=== PATIENT | female | born 1955 | race Caucasian/White ===

== ENCOUNTER → 2023-07-06 | Outpatient (CLI) | payer MEDICARE ==
[2023-07-06 19:47] LABS: ALT 8 U/L (8-44); AST 22 U/L (13-35); Albumin 4.4 g/dL (3.8-4.9); Albumin/Globulin Ratio 1.42 Ratio (1.60-3.17); Alkaline Phosphatase 89 U/L (41-126); BUN/Creat Ratio 17.54 Ratio (12.00-20.00); Blood Urea Nitrogen 22.8 mg/dL (9.0-27.0); Calcium 9.7 mg/dL (8.7-10.3); Carbon Dioxide 26.8 mmol/L (21.6-31.8); Chloride 101 mmol/L (96-109); Globulin 3.1 g/dL (1.6-3.3); Glucose 78 mg/dL (70-110); Potassium 4.1 mmol/L (3.5-5.5); Sodium 139 mmol/L (135-145); T4, Free (Free Thyroxine) 0.34 ng/dL (0.80-1.80); Total Bilirubin 0.2 mg/dL (0.3-1.2); Total Protein 7.5 g/dL (6.2-8.2)
== END | disposition home or self-care (01) ==
LOC: LABWHC1 14:58
PROVIDERS: ATTEND Internal Medicine
DX: E89.0 Postprocedural hypothyroidism (principal)
CPT/HCPCS: 36415; 80053; 84439; 84443

== ENCOUNTER → 2023-07-06 | Outpatient (CLI) | payer MEDICARE ==
--- NOTE | 2023-07-06 15:10 | XR ---
EXAMINATION TYPE: XR chest 2V DATE OF EXAM: 07/06/2023 COMPARISON: NONE TECHNIQUE: PA and lateral views submitted. HISTORY: Cough FINDINGS: The lungs are clear and there is no pneumothorax, pleural effusion, or focal pneumonia. Heart size normal and no overt failure. Osseous structures intact. IMPRESSION: 1. No acute process.
== END | disposition home or self-care (01) ==
LOC: RADXRMAIN 14:42
PROVIDERS: ATTEND Family Medicine
DX: R05.9 Cough, unspecified (principal)
CPT/HCPCS: 71046

== ENCOUNTER 2024-02-23 13:44 | Emergency (ER) | payer MEDICARE ==
--- NOTE | 2024-02-23 15:08 | ED ---
Fall HPI - General Source: patient, RN notes reviewed Mode of arrival: EMS Limitations: no limitations <Arianne Leon - Last Filed: 02/23/24 15:06> - General Source: patient, RN notes reviewed Mode of arrival: EMS Limitations: no limitations - History of Present Illness MD Complaint: fall Onset/Timin -: days(s) Fall From: standing When Fall Occurred: # days SPOTTER Fall Witnessed: no Place Fall Occurred: home Loss of Consciousness: yes Prolonged Down Time?: no Symptoms Prior to Fall: lightheadedness Location - Extremities: Left: Knee, Right: Arm Severity scale (1-10): 10 (Left knee) <Haja Sanchez - Last Filed: 03/03/24 21:50> - General Chief Complaint: Fall Stated Complaint: Fall Time Seen by Provider: 02/23/24 15:07 - History of Present Illness Initial Comments: Quick note: 68-year-old female presented to the ER for evaluation of a fall. Patient states Tuesday night she stood up felt dizzy and blacked out. She states she fell landing on her left knee. She denies head injury or blood thinner use. She admits to loss of consciousness. She does report a pinch in the roof in her neck radiation down her right arm. No chest pain or shortness of breath. (Arianne Leon) This is a 68-year-old female with history of SLE and thyroid issues presenting via EMS for pain following a fall on Tuesday at 2200. Patient endorses loss of consciousness after standing, landing on her left knee suffering neck pain with right upper extremity radiculopathy. Also endorses right foot/toe pain endorses going to a chiropractor day following the fall when her "neck was stretched" with subsequent mid neck pain and neck test 2 days. Endorses neck x-ray at the time showed no acute fractures. Denies chest pain, dyspnea, abdominal pain, N/V/D. (Haja Sanchez) - Related Data Previous Rx's Medication Instructions Recorded Ibuprofen [Motrin] 600 mg PO Q8HR PRN #30 tab 02/23/24 Allergies Allergy/AdvReac Type Severity Reaction Status Date / Time No Known Allergies Allergy Verified 02/23/24 14:10 Review of Systems ROS Other: All systems not noted in ROS Statement are negative. <Arianne Leon - Last Filed: 02/23/24 15:06> ROS Other: All systems not noted in ROS Statement are negative. <Haja Sanchez - Last Filed: 03/03/24 21:50> ROS Statement: Those systems with pertinent positive or pertinent negative responses have been documented in the HPI. Past Medical History Past Medical History: Thyroid Disorder Additional Past Medical History / Comment(s): lupus, pancreatitis Past Surgical History: Cholecystectomy Additional Past Surgical History / Comment(s): breast reduction, thyroidectomy <Arianne Leon - Last Filed: 02/23/24 15:06> General Exam Limitations: no limitations <Arianne Leon - Last Filed: 02/23/24 15:06> Limitations: no limitations General appearance: alert, in no apparent distress Head exam: Present: atraumatic, normocephalic, normal inspection Eye exam: Present: normal appearance, PERRL, EOMI. Absent: scleral icterus, conjunctival injection, periorbital swelling ENT exam: Present: normal exam, mucous membranes moist Neck exam: Present: normal inspection. Absent: tenderness, meningismus, lymphadenopathy Respiratory exam: Present: normal lung sounds bilaterally. Absent: respiratory distress, wheezes, rales, rhonchi, stridor Cardiovascular Exam: Present: regular rate, normal rhythm, normal heart sounds. Absent: systolic murmur, diastolic murmur, rubs, gallop, clicks GI/Abdominal exam: Present: soft, normal bowel sounds. Absent: distended, tenderness, guarding, rebound, rigid Extremities exam: Present: full ROM, tenderness (Positive left superior and medial knee tenderness without obvious open wound, crepitus, deformity. Positive right fifth metatarsal TTP without obvious crepitus or deformity), normal capillary refill, other (Negative left knee Nava's, varus/valgus. Positive Kristopher's test.). Absent: pedal edema, joint swelling, calf tenderness Back exam: Present: normal inspection, paraspinal tenderness (Positive right cervical spine tenderness), vertebral tenderness (Cognitive mid cervical spine tenderness without crepitus or step-off) Neurological exam: Present: alert, oriented X3, CN II-XII intact Psychiatric exam: Present: normal affect, normal mood Skin exam: Present: warm, dry, intact, normal color. Absent: rash <Haja Sanchez - Last Filed: 03/03/24 21:50> - General Exam Comments Initial Comments: Visual Physical Exam Vital signs reviewed General: Well-appearing, nontoxic, no acute distress. Head: Normocephalic, atraumatic Eyes: PERRLA, EOMI ENT: Airway patent Chest: Nonlabored breathing Skin: No visual rash, normal skin tone Neuro: Alert and oriented 3 Musculoskeletal: No gross abnormalities (Arianne Leon) Course Vital Signs 02/23/24 02/23/24 02/23/24 14:05 18:01 22:21 Temperature 99.5 F 98.8 F Pulse Rate 108 H 90 88 Respiratory 20 18 18 Rate Blood Pressure 98/65 116/70 97/58 O2 Sat by Pulse 98 96 95 Oximetry Medical Decision Making <Arianne Leon - Last Filed: 02/23/24 15:06> - Lab Data Result diagrams: 02/23/24 15:48 02/23/24 15:48 <Haja Sanchez - Last Filed: 03/03/24 21:50> - Medical Decision Making I performed the quick note portion of this chart. Electronically signed by Arianne Leon PA-C (Arianne Leon) Was pt. sent in by a medical professional or institution ([facility], [facility], urgent care, hospital, or jail...) When possible be specific @ -No Did you speak to anyone other than the patient for history (EMS, parent, family, police, friend...)? What history was obtained from this source @ -No Did you review nursing and triage notes (agree or disagree)? Why? @ -I reviewed and agree with nursing and triage notes Were old charts reviewed (outside hosp., previous admission, EMS record, old EKG, old radiological studies, urgent care reports/EKG's, jail records)? Report findings @ -No old charts were reviewed Differential Diagnosis (chest pain, altered mental status, abdominal pain women, abdominal pain men, vaginal bleeding, weakness, fever, dyspnea, syncope, headache, dizziness, GI bleed, back pain, seizure, CVA, palpatations, mental health, musculoskeletal)? @ -Differential Syncope: Valvular disease, hypertrophic cardiomyopathy, pulmonary embolism, tamponade, tachycardia, bradycardia, MN, hypovolemia, hemorrhage, dissection, anemia, intracranial hemorrhage, seizure, hypoglycemia, carbon monoxide poisoning, this is not meant to be an all-inclusive list. EKG interpreted by me (3pts min.). @ -Sinus rhythm without ST changes or T wave inversion. Ventricular rate 93 bpm, EVON 132 ms, QRS duration 94 ms, QTc 434 ms. X-rays interpreted by me (1pt min.). @ -Cervical spine x-ray shows mild DDD with no fracture or dislocation. Left knee x-ray shows no acute fracture, joint effusion or soft tissue swelling. Right foot x-ray shows nondisplaced fracture at the base of the proximal fifth digit phalanx. CT interpreted by me (1pt min.). @ -Head/neck CT shows no intracranial process or cervical spine fracture. CT head neck angiography performed to rule out vertebral dissection following chiropractic manipulation. No evidence of carotid or vertebral artery dissection, aneurysm, stenosis. U/S interpreted by me (1pt. min.). @ -None done What testing was considered but not performed or refused? (CT, X-rays, U/S, labs)? Why? @ -None What meds were considered but not given or refused? Why? @ -None Did you discuss the management of the patient with other professionals (professionals i.e. , PA, [facility], lab, RT, psych nurse, medical social worker, derrick follower, teacher, ecological technical officer, social work case manager)? Give summary @ -No Was smoking cessation discussed for >3mins.? @ -No Was critical care preformed (if so, how long)? @ -No Were there social determinants of health that impacted care today? How? (Homelessness, low income, unemployed, alcoholism, drug addiction, transporta tion, low edu. Level, literacy, decrease access to med. care, residential, rehab)? @ -No Was there de-escalation of care discussed even if they declined (Discuss DNR or withdrawal of care, Hospice)? DNR status @ -No What co-morbidities impacted this encounter? (DM, HTN, Smoking, COPD, CAD, Cancer, CVA, ARF, Chemo, Hep., AIDS, mental health diagnosis, sleep apnea, morbid obesity)? @ -None Was patient admitted / discharged? Hospital course, mention meds given and route, prescriptions, significant lab abnormalities, going to OR and other pertinent info. @ -Lab work shows mild hypokalemia (3.4), kidney dysfunction and slightly elevated alk phos. Negative troponin. Cervical spine x-ray shows mild DDD with no fracture or dislocation. Left knee x-ray shows no acute fracture, joint effusion or soft tissue swelling. Right foot x-ray shows nondisplaced fracture at the base of the proximal fifth digit phalanx. Head/neck CT shows no intracranial process or cervical spine fracture. CT head neck angiography performed to rule out vertebral dissection following chiropractic manipulation. No evidence of carotid or vertebral artery dissection, aneurysm, stenosis. Patient initially given Toradol and Norflex for pain. Benadryl and p.o. potassium chloride. Provided. Normal saline with Solu-Medrol and morphine provided by Dr. Davies and patient discharged with T3 starter pack. Motrin 600 sent to patient's pharmacy. And Medi boot ordered for patient's right foot. Undiagnosed new problem with uncertain prognosis? @ -No Drug Therapy requiring intensive monitoring for toxicity (Heparin, Nitro, Insulin, Cardizem)? @ -No Were any procedures done? @ -No Diagnosis/symptom? @ -Right toe fracture, cervical spine strain, knee contusion, orthostasis Acute, or Chronic, or Acute on Chronic? @ -Acute Uncomplicated (without systemic symptoms) or Complicated (systemic symptoms)? @ -Complicated Side effects of treatment? @ -No Exacerbation, Progression, or Severe Exacerbation? @ -No Poses a threat to life or bodily function? How? (Chest pain, USA, MN, pneumonia, PE, COPD, DKA, ARF, appy, cholecystitis, CVA, Diverticulitis, Homicidal, Suicidal, threat to staff... and all critical care pts) @ -No (Haja Sanchez) - Lab Data Lab Results 02/23/24 02/23/24 02/23/24 Range/Units 15:48 15:48 15:48 WBC 12.2 H (3.8-10.6) k/uL RBC 4.13 (3.80-5.40) m/uL Hgb 11.1 L (11.4-16.0) gm/dL Hct 33.3 L (34.0-46.0) % MCV 80.6 (80.0-100.0) fL MCH 26.9 (25.0-35.0) pg MCHC 33.4 (31.0-37.0) g/dL RDW 16.1 H (11.5-15.5) % Plt Count 271 (150-450) k/uL MPV 8.2 Neutrophils % 81 % Lymphocytes % 11 % Monocytes % 6 % Eosinophils % 1 % Basophils % 0 % Neutrophils # 9.8 H (1.3-7.7) k/uL Lymphocytes # 1.4 (1.0-4.8) k/uL Monocytes # 0.7 (0-1.0) k/uL Eosinophils # 0.1 (0-0.7) k/uL Basophils # 0.0 (0-0.2) k/uL Anisocytosis Slight PT 9.8 L (10.0-12.5) sec INR 0.9 (<1.2) APTT 23.6 (22.0-30.0) sec Sodium 137 (137-145) mmol/L Potassium 3.4 L (3.5-5.1) mmol/L Chloride 101 (98-107) mmol/L Carbon Dioxide 24 (22-30) mmol/L Anion Gap 12 mmol/L BUN 25 H (7-17) mg/dL Creatinine 1.18 H (0.52-1.04) mg/dL Est GFR (CKD-EPI)AfAm 55 (>60 ml/min/1.73 sqM) Est GFR (CKD-EPI)NonAf 48 (>60 ml/min/1.73 sqM) Glucose 142 H (74-99) mg/dL Calcium 9.7 (8.4-10.2) mg/dL Magnesium 2.1 (1.6-2.3) mg/dL Total Bilirubin 0.7 (0.2-1.3) mg/dL AST 29 (14-36) U/L ALT 19 (4-34) U/L Alkaline Phosphatase 129 H (38-126) U/L Troponin I (0.000-0.034) ng/mL Total Protein 7.8 (6.3-8.2) g/dL Albumin 4.5 (3.5-5.0) g/dL 02/23/24 Range/Units 15:48 WBC (3.8-10.6) k/uL RBC (3.80-5.40) m/uL Hgb (11.4-16.0) gm/dL Hct (34.0-46.0) % MCV (80.0-100.0) fL MCH (25.0-35.0) pg MCHC (31.0-37.0) g/dL RDW (11.5-15.5) % Plt Count (150-450) k/uL MPV Neutrophils % % Lymphocytes % % Monocytes % % Eosinophils % % Basophils % % Neutrophils # (1.3-7.7) k/uL Lymphocytes # (1.0-4.8) k/uL Monocytes # (0-1.0) k/uL Eosinophils # (0-0.7) k/uL Basophils # (0-0.2) k/uL Anisocytosis PT (10.0-12.5) sec INR (<1.2) APTT (22.0-30.0) sec Sodium (137-145) mmol/L Potassium (3.5-5.1) mmol/L Chloride (98-107) mmol/L Carbon Dioxide (22-30) mmol/L Anion Gap mmol/L BUN (7-17) mg/dL Creatinine (0.52-1.04) mg/dL Est GFR (CKD-EPI)AfAm (>60 ml/min/1.73 sqM) Est GFR (CKD-EPI)NonAf (>60 ml/min/1.73 sqM) Glucose (74-99) mg/dL Calcium (8.4-10.2) mg/dL Magnesium (1.6-2.3) mg/dL Total Bilirubin (0.2-1.3) mg/dL AST (14-36) U/L ALT (4-34) U/L Alkaline Phosphatase (38-126) U/L Troponin I 0.028 (0.000-0.034) ng/mL Total Protein (6.3-8.2) g/dL Albumin (3.5-5.0) g/dL Disposition <Arianne Leon - Last Filed: 02/23/24 15:06> Is patient prescribed a controlled substance at d/c from ED?: No Time of Disposition: 22:01 <Haja Sanchez - Last Filed: 03/03/24 21:50> Clinical Impression: Contusion of knee, left, Toe fracture, right, Orthostasis, Sprain of ligament of cervical spine region Disposition: HOME SELF-CARE Condition: Good Instructions (If sedation given, give patient instructions): Foot Fracture in Adults (ED) Prescriptions: Ibuprofen [Motrin] 600 mg PO Q8HR PRN #30 tab PRN Reason: Pain Referrals: Hal Nicolas MD [Primary Care Provider] - 1-2 days
--- NOTE | 2024-02-23 15:15 | XR ---
EXAMINATION TYPE: XR knee complete LT DATE OF EXAM: 02/23/2024 3:07 PM COMPARISON: None CLINICAL INDICATION: Female, 68 years old with history of fall, pain TECHNIQUE: XR knee complete LT 3 views submitted. FINDINGS: No evidence of any acute osseous pathology, soft tissue swelling, or joint effusion is no albert. Tricompartmental osteophyte formation involving the femoral condyles, tibial plateau and patella . Mild joint space narrowing. IMPRESSION: 1. No acute osseous pathology. 2. Mild tricompartmental osteoarthritic changes. [facility], Workstation: [facility], 02/23/2024 3:13 PM
--- NOTE | 2024-02-23 15:15 | XR ---
EXAMINATION TYPE: XR cervical spine comp DATE OF EXAM: 02/23/2024 3:07 PM COMPARISON: CLINICAL INDICATION: Female, 68 years old with history of fall; pain TECHNIQUE: The cervical spine was imaged in frontal, lateral, odontoid and bilateral oblique. FINDINGS: The osseous structures show normal alignment without evidence of an acute fracture. There are osteoph ytes noted throughout the cervical spine on the anterior and lateral aspects of the vertebral bodies. The intervertebral disk spaces are narrowed at multiple levels. Pedicles are intact. Soft tissues a re within normal limits. The odontoid appears intact. IMPRESSION: 1. No fracture or dislocation. 2. Mild degenerative disc disease changes of the cervical spine. [facility], Workstation: [facility], 02/23/2024 3:12 PM
[2024-02-23 16:22] LABS: Anisocytosis Slight; Basophils % (A) 0 %; Eosinophils # (A) 0.1 k/uL (0-0.7); Eosinophils % (A) 1 %; HCT 33.3 % (34.0-46.0); HGB 11.1 gm/dL (11.4-16.0); Lymphocytes # (A) 1.4 k/uL (1.0-4.8); Lymphocytes % (A) 11 %; MCH 26.9 pg (25.0-35.0); MCHC 33.4 g/dL (31.0-37.0); MCV 80.6 fL (80.0-100.0); Mean Platelet Volume 8.2; Monocytes # (A) 0.7 k/uL (0-1.0); Monocytes % (A) 6 %; Neutrophils # (A) 9.8 k/uL (1.3-7.7); Neutrophils % (A) 81 %; Platelet Count 271 k/uL (150-450); RBC 4.13 m/uL (3.80-5.40); RDW 16.1 % (11.5-15.5); WBC 12.2 k/uL (3.8-10.6)
[2024-02-23 16:35] LABS: ALT 19 U/L (4-34); AST 29 U/L (14-36); African American GFR (CKD) 55 (>60 ml/min/1.73 sqM); Albumin 4.5 g/dL (3.5-5.0); Alkaline Phosphatase 129 U/L (38-126); Anion Gap 12 mmol/L; Blood Urea Nitrogen 25 mg/dL (7-17); Calcium 9.7 mg/dL (8.4-10.2); Carbon Dioxide 24 mmol/L (22-30); Chloride 101 mmol/L (98-107); Glucose 142 mg/dL (74-99); Magnesium 2.1 mg/dL (1.6-2.3); Non-African American GFR(CKD) 48 (>60 ml/min/1.73 sqM); Potassium 3.4 mmol/L (3.5-5.1); Sodium 137 mmol/L (137-145); Total Bilirubin 0.7 mg/dL (0.2-1.3); Total Protein 7.8 g/dL (6.3-8.2)
--- NOTE | 2024-02-23 16:51 | XR ---
EXAMINATION TYPE: XR foot complete RT DATE OF EXAM: 02/23/2024 4:47 PM COMPARISON: None. CLINICAL INDICATION: Female, 68 years old with history of Lateral foot pain/tenderness, pain TECHNIQUE: XR foot complete RT XX views were obtained. FINDINGS: Virtually nondisplaced fracture involving the base of the proximal phalanx right fifth digit with adj acent soft tissue swelling. No definite intra-articular extension appreciated. IMPRESSION: As above [facility], , 02/23/2024 4:48 PM
[2024-02-23] MEDS: KETOROLAC 15 MG/ML 1 ML VIAL IVP STA (17:07)
[2024-02-23] MEDS: ORPHENADRINE 30 MG/ML 2 ML VIAL IVP STA (17:09)
[2024-02-23 17:13] LABS: INR 0.9 (<1.2); Partial Thromboplastin Time 23.6 sec (22.0-30.0); Prothrombin Time 9.8 sec (10.0-12.5)
[2024-02-23] MEDS: diphenhydrAMINE 50 MG/ML 1 ML VIAL IVP STA (17:59)
[2024-02-23 18:01] VITALS: RESP 18
--- NOTE | 2024-02-23 19:10 | CT ---
EXAMINATION TYPE: CT brain cspine wo con CT DLP: 1248 mGycm, Automated exposure control for dose reduction was used. DATE OF EXAM: 02/23/2024 6:22 PM COMPARISON: None. CLINICAL INDICATION:Female, 68 years old with history of Fall, pain; Fall on Tuesday. TECHNIQUE: Brain: Multiple axial CT images of the brain were obtained without IV contrast. Cspine: Axial CT images from the skull base to the inferior aspect of T2 we obtained without intraven ous contrast. Coronal and sagittal reformatted images were also reviewed. . FINDINGS: Brain: Extra-axial spaces: No abnormal extra-axial fluid collections. Ventricular system: Within normal limits Cerebral parenchyma: No acute intraparenchymal hemorrhage or mass effect. The bee-white junction is well differentiated. Bilateral basal ganglia mineralization. Cerebellum: Unremarkable. Mass effect: No evidence of midline shift. Intracranial vasculature: unremarkable Soft tissues: Normal. Calvarium/osseous structures: No depressed skull fracture. Paranasal sinuses and mastoid air cells: Clear. Visualized orbits: Orbital contents are intact. Cervical spine: Fracture: No acute osseous abnormality. Osseous structures: Mild degenerative disease of the visualized spine. Vertebral alignment: Within normal limits. Spinal canal/Neural Foramina: No evidence of significant spinal canal narrowing. No evidence for sign ificant neural foraminal stenosis. Neck soft tissues: Prevertebral soft tissues are within normal limits. Other: The airway is patent. The lung apices are clear. IMPRESSION: 1. No acute intracranial process. 2. No evidence of acute cervical spine fracture. [facility], , 02/23/2024 7:08 PM
[2024-02-23] MEDS: POTASSIUM CHLORIDE ER 20 MEQ TAB.ER PO STA (19:28)
[2024-02-23] MEDS: methylPREDNISolone SOD SUCCIN 125 MG in SODIUM CHLORIDE 0.9% 100 ML IVPB STA (19:45)
[2024-02-23] MEDS: SODIUM CHLORIDE 0.9% 1,000 ML IV ONE (19:52)
[2024-02-23] MEDS: methylPREDNISolone SOD SUCCI 125 MG/2 ML VIAL IV STA (19:53)
[2024-02-23] MEDS: MORPHINE SULFATE 4 MG/ML SYRINGE IVP STA (19:55)
--- NOTE | 2024-02-23 21:48 | CT ---
EXAMINATION TYPE: CT angio head neck CT DLP: 449 mGycm, Automated exposure control for dose reduction was used. DATE OF EXAM: 02/23/2024 9:33 PM COMPARISON: CT head from the same day. CLINICAL INDICATION:Female, 68 years old with history of syncope after chiropractor; PHH, Syncope. TECHNIQUE: Axially acquired helical CT angiogram of the head and neck was obtained with contrast. Axi al images are supplemented with 3D reconstructions and MIP images which were post-processed at an in dependent workstation. NASCET criteria used. Contrast used:65ml mL of Isovue 370 with IV Contrast, Oral contrast used: None. FINDINGS: CTA HEAD: Please see CT head noncontrasted study from the same day for further intracranial details. The visualized portions of the internal carotid arteries, middle cerebral arteries, anterior cerebral arteries, and posterior cerebral arteries are patent. The basilar and vertebral arteries are patent. CTA NECK: Right Carotid System: The common carotid artery and external carotid artery are patent. The carotid bifurcation demonstrate s no evidence of hemodynamically significant stenosis. The remaining portions of the internal carotid artery demonstrate normal size without significant narrowing. Left Carotid System: The common carotid artery and external carotid artery are patent. The carotid bifurcation demonstrate s no evidence of hemodynamically significant stenosis. The remaining portions of the internal carotid artery demonstrate normal size without significant narrowing. Vertebral arteries are patent without evidence hemodynamically significant stenosis. There is a three-vessel aortic arch. The origins of the great vessels are patent. No evidence of hemo dynamically significant stenosis. Upper thorax: IMPRESSION: 1. No evidence of dissection of the cervical internal carotid arteries or vertebral arteries or any e vidence of significant stenosis at the carotid bifurcations. 2. No evidence of intracranial high-grade stenosis or intracranial aneurysm. [facility], , 02/23/2024 9:46 PM
[2024-02-23] MEDS: ACET/COD 300 MG/30 MG STARTER PACK 6 TAB BTL PO STA (22:18)
[2024-02-23 22:24] VITALS: BP 97/58; PULSE 88; TEMP 98.8
== END 2024-02-23 22:27 | disposition home or self-care (01) ==
LOC: EC 13:44
DX: S92.911A Unspecified fracture of right toe(s), initial encounter for closed fracture (principal); S13.4XXA Sprain of ligaments of cervical spine, initial encounter; S80.02XA Contusion of left knee, initial encounter; I95.1 Orthostatic hypotension; W18.30XA Fall on same level, unspecified, initial encounter
CPT/HCPCS: 36415; 93005; 80053; 83735; 84484; 85025; 85610; 85730; 72050; 73562; 73630; 72125; 70496; 70450; 70498; 99284; 96374; 96375; 96361; J2270; J1200; J2360; J1885; Q9967; J2919

== ENCOUNTER 2024-05-18 09:10 | Day surgery (SDC) | payer MEDICARE ==
[2024-05-17 12:46] VITALS: BMI 25.9
[2024-05-18] MEDS: LACTATED RINGERS 1,000 ML IV SCH (09:35)
[2024-05-18] MEDS: IV FLUID CONTINUATION 1,000 ML IV ONE (09:35)
[2024-05-18] MEDS: LIDOCAINE 1% (10MG/ML) FOR IV START INTRADERMA STA (09:35)
[2024-05-18 09:41] VITALS: TEMP 97
[2024-05-18] MEDS ORDERED: PROPOFOL 10 MG/ML 20 ML VIAL IV ONE (09:46)
[2024-05-18] MEDS ORDERED: LIDOCAINE 1% INJ 10MG/ML (20 ML MDV) ONE (09:46)
--- NOTE | 2024-05-18 10:14 | P.PCN ---
Date of Procedure: 05/18/24 Procedure(s) Performed: Brief history: Patient is a pleasant 69-year-old white female scheduled for an elective upper endoscopy as well as colonoscopy as a part of evaluation of chronic epigastric pain for the last 3 months duration and chronic diarrhea with 12 loose watery bowel movements daily for the last few months. Procedure performed: Esophagogastroduodenoscopy with biopsy Colonoscopy with random biopsies Preoperative diagnosis: Chronic epigastric pain Chronic diarrhea Anesthesia: MAC Procedure: After informed consent was obtained from the patient was brought into the endoscopy unit and IV sedation was administered by anesthesia under continuous monitoring. Initially upper endoscopy was done. The Olympus GF 160 video endoscope was inserted inserted into the mouth and esophagus intubated without any difficulty and was gradually advanced into the stomach and duodenum and carefully examined. The bulb and second part of the duodenum appeared normal. Biopsies were done from the duodenum duodenum rule out celiac disease the scope was then withdrawn into the stomach adequately insufflated with air and upon careful examination the antrum 1 cm clean-based ulcer which was biopsied. There was evidence of antral gastritis noted. Mucosa of the body, cardia and fundus appeared normal. The scope was then withdrawn into the esophagus. The GE junction was located at 40 cm to the incisors. It appeared regular with no erythema erosions or ulcerations. Rest of the esophagus appeared normal. Patient tolerated the procedure well. At this time the patient continued to remain sedation. Initial digital rectal examination was normal. Olympus CF 160 video colonoscope was then inserted into the rectum and gradually advanced to the cecum without any difficulty. Careful examination was performed as the scope was gradually being withdrawn. The prep was excellent. The cecum had a 3 mm polyp that was removed by cold biopsy. Rest of the, ascending colon, transverse colon, descending colon, sigmoid colon and rectum appeared normal. These were done from the ascending and descending colon rule out microscopic/collagenous colitis. Scattered sigmoid diverticulosis retroflexion was performed in the rectum and no lesions were noted. Patient tolerated the procedure well. Impression: 1. Upper endoscopy revealed 1 cm clean-based antral ulcer and antral erosive gastritis status post biopsies 2. Colonoscopy revealed 3 mm cecal polyp status post cold biopsy and the rest of the colon appeared normal except for scattered sigmoid diverticulosis Recommendations: Findings of this examination were discussed with the patient as well as her family. She was advised to follow-up with the biopsy results. Increase pantoprazole to 40 mg mg twice daily and advised to avoid NSAIDs. If the biopsy reveals adenoma she can have repeat colonoscopy in 5 years. She will follow-up in the office in 2 to 3 weeks.
[2024-05-18 10:31] VITALS: BP 132/69; PULSE 58; RESP 16
== END 2024-05-18 10:46 | disposition home or self-care (01) ==
LOC: ORWHC2ENDO 09:10
PROVIDERS: ATTEND Internal Medicine Gastroenterology
DX: K29.50 Unspecified chronic gastritis without bleeding (principal); K25.9 Gastric ulcer, unspecified as acute or chronic, without hemorrhage or perforation; D12.0 Benign neoplasm of cecum; K52.9 Noninfective gastroenteritis and colitis, unspecified; K57.30 Diverticulosis of large intestine without perforation or abscess without bleeding; E89.0 Postprocedural hypothyroidism; F17.210 Nicotine dependence, cigarettes, uncomplicated; Z85.850 Personal history of malignant neoplasm of thyroid; Z79.899 Other long term (current) drug therapy; Z79.890 Hormone replacement therapy; Z90.49 Acquired absence of other specified parts of digestive tract; Z98.890 Other specified postprocedural states
CPT/HCPCS: 88305; 45380; 43239; J2003; J2704